=== PATIENT | male | born 1940 | race Caucasian/White ===

== ENCOUNTER 2016-07-14 12:03 | Emergency (ER) | payer OTHER, MEDICARE | END 2016-07-14 15:40 | disposition home or self-care (01) | LOC: ER 12:03 | DX: S82.492A Other fracture of shaft of left fibula, initial encounter for closed fracture (principal); S30.811A Abrasion of abdominal wall, initial encounter; S16.1XXA Strain of muscle, fascia and tendon at neck level, initial encounter; S00.33XA Contusion of nose, initial encounter; R04.0 Epistaxis; I10 Essential (primary) hypertension; H40.9 Unspecified glaucoma; Z91.041 Radiographic dye allergy status; V13.4XXA Pedal cycle driver injured in collision with car, pick-up truck or van in traffic accident, initial encounter | CPT/HCPCS: 36415; 96361; 96374; 96375; J1200; Q9967 ==